=== PATIENT | female | born 1945 | race Caucasian/White ===

== ENCOUNTER → 2017-12-17 | Outpatient (RCR) | payer MEDICARE | LOC: PT 12-03 14:20 | PROVIDERS: ATTEND Orthopaedic Surgery | DX: S72.012D Unspecified intracapsular fracture of left femur, subsequent encounter for closed fracture with routine healing (principal); I73.00 Raynaud's syndrome without gangrene; J44.9 Chronic obstructive pulmonary disease, unspecified; I10 Essential (primary) hypertension | CPT/HCPCS: 97110 ×5; 97139; 97161; G8978; G8979 ==

== ENCOUNTER 2018-01-14 10:49 | Outpatient (RCR) | payer MEDICARE | END 2018-01-16 | LOC: PT 10:49 | PROVIDERS: ATTEND Orthopaedic Surgery | DX: S72.012D Unspecified intracapsular fracture of left femur, subsequent encounter for closed fracture with routine healing (principal); J44.9 Chronic obstructive pulmonary disease, unspecified; I73.00 Raynaud's syndrome without gangrene; I10 Essential (primary) hypertension | CPT/HCPCS: 97110 ×8; 97139; G8978; G8979 ==

== ENCOUNTER → 2018-02-16 | Outpatient (RCR) | payer MEDICARE | LOC: PT 01-19 10:58 | PROVIDERS: ATTEND Orthopaedic Surgery | DX: S72.012D Unspecified intracapsular fracture of left femur, subsequent encounter for closed fracture with routine healing (principal); J44.9 Chronic obstructive pulmonary disease, unspecified; I73.00 Raynaud's syndrome without gangrene; I10 Essential (primary) hypertension | CPT/HCPCS: 97010; 97110 ×9; 97116; 97139; G8978; G8979 ==

== ENCOUNTER 2018-03-02 11:00 | Outpatient (RCR) | payer MEDICARE | END 2018-03-19 | LOC: PT 11:00 | PROVIDERS: ATTEND Orthopaedic Surgery | DX: S72.012D Unspecified intracapsular fracture of left femur, subsequent encounter for closed fracture with routine healing (principal); J44.9 Chronic obstructive pulmonary disease, unspecified; I73.00 Raynaud's syndrome without gangrene; I10 Essential (primary) hypertension | CPT/HCPCS: 97110 ×4; G8978; G8979 ==

== ENCOUNTER → 2018-06-18 | Outpatient (RCR) | payer MEDICARE | LOC: PT 05-27 11:27 | PROVIDERS: ATTEND Internal Medicine Pulmonary Disease | DX: R26.9 Unspecified abnormalities of gait and mobility (principal) | CPT/HCPCS: 97110 ×5; 97161; G8978; G8979 ==

== ENCOUNTER 2018-07-15 11:00 | Outpatient (RCR) | payer MEDICARE | END 2018-07-19 | LOC: PT 11:00 | PROVIDERS: ATTEND Internal Medicine Pulmonary Disease | DX: R29.6 Repeated falls (principal) | CPT/HCPCS: 97110 ×7; 97112; 97139; G8978; G8979 ==

== ENCOUNTER → 2021-04-18 | Outpatient (CLI) | payer MEDICARE | LOC: RAD 11:13 | PROVIDERS: ATTEND Internal Medicine Pulmonary Disease | DX: J18.9 Pneumonia, unspecified organism (principal) | CPT/HCPCS: 71046 ==

== ENCOUNTER 2024-06-18 23:47 | Emergency (ER) | payer MEDICARE ==
[~2024-06-18] VITALS: Ht 160 cm; Wt 43.1 kg
[2024-06-18 23:47] VITALS: RESP 17; TEMP 98.4
[2024-06-19 01:00] VITALS: PULSE 69
[2024-06-19 01:09] VITALS: BP 171/79; O2SAT 100
== END 2024-06-19 01:12 | disposition home or self-care (01) ==
LOC: ER 23:54
DX: S00.83XA Contusion of other part of head, initial encounter (principal); W01.198A Fall on same level from slipping, tripping and stumbling with subsequent striking against other object, initial encounter; Y93.01 Activity, walking, marching and hiking; Y92.89 Other specified places as the place of occurrence of the external cause; F03.90 Unspecified dementia, unspecified severity, without behavioral disturbance, psychotic disturbance, mood disturbance, and anxiety; Z98.84 Bariatric surgery status; Z96.642 Presence of left artificial hip joint
CPT/HCPCS: 70450; 99283

== ENCOUNTER 2024-11-11 18:46 | Emergency (ER) | payer MEDICARE ==
[~2024-11-11] VITALS: Ht 160 cm; Wt 39.5 kg
[2024-11-11] MEDS ORDERED: SODIUM CHLORIDE 0.9% IV ONE (20:15)
[2024-11-11] MEDS: SODIUM CHLORIDE 0.9% 1000ML 500 ML IV ONE (20:52)
[2024-11-11] MEDS: ASPIRIN 81 MG CHEW TAB PO ONE (21:49)
[2024-11-11] MEDS: ENOXAPARIN SODIUM INJ 100 MG/ML SYR SC STA (21:49)
[2024-11-11 22:23] VITALS: PULSE 114; RESP 16; TEMP 98.3
[2024-11-11] MEDS: CEFTRIAXONE 1 GM VIAL IM ONE (22:26)
[2024-11-11] MEDS ORDERED: METOPROLOL TARTRATE INJ 1 MG/ML VIAL IV ONE (22:30)
[2024-11-11 23:26] VITALS: BP 119/57; PULSE 99; RESP 20; TEMP 98.3; O2SAT 99
== END 2024-11-11 23:29 | disposition other institution (70) ==
LOC: FSED 19:27
DX: R53.1 Weakness (principal); I21.4 Non-ST elevation (NSTEMI) myocardial infarction; I48.20 Chronic atrial fibrillation, unspecified; N39.0 Urinary tract infection, site not specified; E86.0 Dehydration; E86.1 Hypovolemia; R94.31 Abnormal electrocardiogram [ECG] [EKG]
CPT/HCPCS: 71045; 80053; 84484; 85025; 87040; 87071; 87186; 87205; 93005; 99284; J0696; J1650; J7030